=== PATIENT | male | born 1995 | race Caucasian/White ===

== ENCOUNTER 2016-09-05 11:16 | Emergency (ER) | payer OTHER ==
[~2016-09-05] VITALS: Ht 175.3 cm; Wt 65.3 kg
--- NOTE | 2016-09-05 11:39 | ED GENERAL ADULT ---
See Addendum History of Present Illness General Chief Complaint: Headache Stated Complaint: BIBA FOR MIGRAINE Source: patient, family Exam Limitations: no limitations Vital Signs & Intake/Output Vital Signs & Intake/Output Vital Signs Date Time Temp Pulse Resp B/P Pulse O2 O2 Flow FiO2 Ox Delivery Rate 09/05 2004 98.0 97 18 122/62 98 Room Air 09/05 1553 97.8 94 18 128/59 98 09/05 1307 Room Air Room Air 09/05 1123 97.8 102 16 127/85 95 Room Air ED Intake and Output 09/06 0000 09/05 1200 Intake Total 120 Output Total Balance 120 Intake, Oral 120 Patient 144 lb Weight Allergies Coded Allergies: No Known Allergies (09/05/16) Reconcile Medications Clonidine HCl 0.1 MG TABLET 1 TAB PO BID PRN WITHDRAWAL Ibuprofen 800 MG TABLET 1 TAB PO TID PRN PAIN Ondansetron (Zofran Odt) 4 MG TAB.RAPDIS 1 TAB PO Q6 PRN NAUSEA Triage Note: 30 Y/O MALE BIBA (TO TRIAGE) C/O SEVERE ANXIETY. STATES HE WOKE UP TODAY FEELING "SCARED, SO ANXIOUS" - TOOK 2MG XANAX AT THAT TIME AND DID NOT FEEL ANY BETTER SO ALSO USED HEROIN. STATES HE USES HEROIN A FEW TIMES A WEEK BUT STATES HE USED "A SMALL AMOUNT TODAY". PT STATES HE CAME TO ED TODAY DUE TO CONTINUED FEELING OF ANXIETY AND ALSO MIGRAINE HEADACHE. DENIES SI/HI PT ENTERED TRIAGE WITH FATHER; REQUESTED FATHER TO LEAVE AND STATES HE WOULD NOT LIKE HE FATHER TO KNOW ABOUT HIS CURRENT HEROIN USE. Triage Nurses Notes Reviewed? yes Onset: Abrupt Duration: hour(s): Timing: recent history HPI: 09/05/16 1:25 PM 30-year-old male was referred from [facility] for depression with suicidal ideation. The patient's been using heroin on a daily basis. He also complains of a headache and had some facial itching. The onset of the symptoms been abrupt, the duration is really unclear, the severity is significant as his symptoms required him to come to the emergency department for care No fever or other complaints (RL DELONG DO) Past History Travel History Traveled to [place] past 21 day No Medical History Any Pertinent Medical History? 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 No (RL DELONG DO) Review of Systems Review of Systems Constitutional: Denies: fever. EENTM: Reports: no symptoms. Respiratory: Reports: no symptoms. Cardiovascular: Reports: no symptoms. GI: Reports: no symptoms. Genitourinary: Reports: no symptoms. Musculoskeletal: Reports: no symptoms. Skin: Reports: no symptoms. Neurological/Psychological: Reports: depressed. Hematologic/Endocrine: Reports: no symptoms. (RL DELONG DO) Physical Exam Physical Exam General Appearance: alert, awake, anxious, mild distress Head: atraumatic, normal appearance Eyes: Bilateral: normal appearance, PERRL, EOMI. Ears, Nose, Throat: normal pharynx, normal ENT inspection Neck: normal inspection, supple, full range of motion Respiratory: normal breath sounds, chest non-tender, no respiratory distress Cardiovascular: regular rate/rhythm Peripheral Pulses: 4+ radial (R), 4+ radial (L) Gastrointestinal: non-tender Back: normal range of motion Extremities: normal inspection, normal range of motion Neurologic/Psych: no motor/sensory deficits, awake, alert, oriented x 3 Skin: intact, normal color, warm/dry Core Measures ACS in differential dx? No CVA/TIA Diagnosis: No Severe Sepsis Present: No Septic Shock Present: No (RL DELONG DO) Progress Differential Diagnoses I considered the following diagnoses in my evaluation of the patient: [ Depression, suicidal ideation, substance abuse] Plan of Care: Orders Procedure Date/time Status Continuous Observation Monitor 09/05 1328 Active ED CRISIS PSYCH CONSULT 09/05 1328 Active URINE DRUG SCREEN FOR ER ONLY 09/05 1234 Complete ACETOMINOPHEN 09/05 1234 Complete SALICYLATE 09/05 1234 Complete COMPREHENSIVE METABOLIC PANEL 09/05 1234 Complete CBC WITHOUT DIFFERENTIAL 09/05 1234 Complete Laboratory Tests 09/05/16 1325: RBC 5.08, MCV 88.4, MCH 29.9, RDW 12.2, MPV 7.5, Gran % 68.8, Lymphocytes % 23.2 , Monocytes % 6.4, Eosinophils % 1.2, Basophils % 0.4, Absolute Granulocytes 7.9 H, Absolute Lymphocytes 2.7, Absolute Monocytes 0.7 H, Absolute Eosinophils 0.1, Absolute Basophils 0, PUBS MCHC 33.8 09/05/16 1300: Urine Opiates Screen > 4000.00 H, Methadone Screen < 40, Barbiturate Screen < 60, Ur Phencyclidine Scrn < 6.00, Amphetamines Screen 256, U Benzodiazepines Scrn > 800 H, Urine Cocaine Screen 687 H, Urine Cannabis Screen 78.40 H 09/05/16 1300: Anion Gap 9, Estimated GFR > 60, BUN/Creatinine Ratio 12.9, Glucose 94, Calcium 9.3, Total Bilirubin 0.5, AST 31, ALT 30, Alkaline Phosphatase 57, Total Protein 6.8, Albumin 4.0, Globulin 2.8, Albumin/Globulin Ratio 1.4, Salicylates < 1.0, Acetaminophen < 10.0 L Patient cleared by Mitch from crisis for discharge home. Requesting outpatient methadone clinic. (BRIELLE TRIMBLE MD) Initial ED EKG: none (RL DELONG DO) Departure Departure Condition: Stable Referrals: PATIENT HAS NO PRIMARY CARE DR (PCP/Family) Departure Forms: Customer Survey General Discharge Information Prescriptions: Current Visit Scripts Ibuprofen 1 TAB PO TID PRN PAIN #20 TAB Ondansetron (Zofran Odt) 1 TAB PO Q6 PRN NAUSEA #20 TAB Clonidine HCl 1 TAB PO BID PRN WITHDRAWAL #15 TAB Comments The patient was seen and evaluated by crisis. He he would like to follow up in a methadone program. The patient was signed out to Dr. Trimble at 7 PM. (RL DELONG DO) Departure Disposition: HOME OR SELF CARE Clinical Impression Primary Impression: Benzodiazepine abuse Secondary Impressions: Opiate abuse, continuous Additional Instructions: Follow up with the outpatient list of detox referrals to you from our crisis department. Return as needed. (BRIELLE TRIMBLE MD) Critical Care Note Critical Care Note Critical Care Time: 30-74 min (RL DELONG DO)
[2016-09-05 14:01] LABS: ABSOLUTE BASOPHIL COUNT 0 /CUMM (0.0-0.2); ABSOLUTE EOSINOPHIL COUNT 0.1 /CUMM (0.0-0.7); ABSOLUTE GRANULOCYTE CT 7.9 /CUMM (1.4-6.5); ABSOLUTE LYMPH COUNT 2.7 /CUMM (1.2-3.4); ABSOLUTE MONOCYTE COUNT 0.7 /CUMM (0.10-0.60); BASOPHIL % 0.4 % (0.0-2.0); EOSINOPHIL % 1.2 % (0-5); GRANULOCYTE % 68.8 % (42.2-75.2); HEMATOCRIT 44.9 % (42-52); MEAN CORPUSCULAR HGB 29.9 PG (27.0-31.0); MEAN CORPUSCULAR HGB CONC 33.8 G/DL (33.0-37.0); MEAN CORPUSCULAR VOLUME 88.4 FL (80.0-94.0); MEAN PLATELET VOLUME 7.5 FL (7.4-10.4); PLATELET COUNT 215 /CUMM (130-400); RBC DISTRIBUTION WIDTH 12.2 % (11.5-14.5); RED BLOOD CELL CT 5.08 /CUMM (4.70-6.10); WHITE BLOOD CELL COUNT 11.5 /CUMM (4.8-10.8)
[2016-09-05 20:05] VITALS: BP 122/62
[2016-09-05] MEDS ORDERED: ZOFRAN ODT4 M1 PO (20:39)
[2016-09-05] MEDS ORDERED: CLONIDINE HCL0.1 MG PO (20:39)
[2016-09-05] MEDS ORDERED: IBUPROFEN800 M1 PO (20:39)
--- NOTE | 2016-09-05 20:44 | ED PSYCH CRISIS CONSULTATION ---
Crisis Consult Basic Assessment Date of Consult: 09/05/16 Responsible Person/Accompanied By: Brought in by father Insurance Authorization: Insurance #1: Insurance name: SELF-PAY Phone number: Policy number: Group number: Authorization number: ED Provider: Patient's ED Provider: RL DELONG DO Primary Care Physician: Patient's PCP: PATIENT HAS NO PRIMARY CARE DR PCP's Phone Number: Current Psychiatrist: Patient denies Chief Complaint: Headache Patient's Quote: "Last night I had a panic attack. I'm also a heroin user." Present Illness: Patient is a single 20 year old Samoan Lithuanian male who arrived to [facility]'s emergency department with his father due to concern of headache and increased anxiety (panic attacks in the past 24 hours). Pt. also reported to triage that he has been using heroin. Pt. presented calm, cooperative, and euthymic. Pt. denies suicidal thought , intent or plan. No indication of homicidal ideation, psychosis, or other high risk factors other than impulsivity / substance use. Patient admits to using heroin, marijuana, and illegal prescription opiates (xanax.) Patient has been intermittently using different substance since age 16 with longest reported sobriety at ~ 4 months last year. During that period of sobriety which patient achieved after quitting "cold turkley", he reports being barely functional with depressed mood / anhedonia. Patient lives with both biological parents in [place], [place]. Pt also reports attending community college in the [place], [place] Pt. has no history of inpatient treatment, or residential substance use treatment. Pt. has been evaluated before at the [facility] in [place] and at [facility] in [place]. However, it is unclear if pt. followed through and was consistent in treatment. Currently, patient is motivated to enter a methadone program. Pt. reports he is experiencing depressive symptoms, significant anxiety, and is nervous about having withdrawal symptoms / cravings for opiates / benzos. Pt.'s father is present and supportive of patient. Patient's Address: [address] [place] [address] Other Phone Number: Who Do You Live With? Family Family/Informants Interviewed: Father - Ramon Dlegado Father reports being concerned about patient. He is well aware of his substance use concerns and has tried to increase monitoring of patient. This is complicated as patient often is resistant and impulsive yet father tried to continue encouraging patient to accept treatment. Father indicates being aware of patient's substance use for the past 2 years. Father believes patient's friends are a negative influence and actively seek him out and push substances on him. Allergies - Coded Allergies: No Known Allergies (09/05/16) Current Medications - Scheduled PRN Medications Clonidine HCl 0.1 MG TABLET 1 TAB PO BID PRN WITHDRAWAL #15 TAB Prescribed by BRIELLE PINO MD on 09/05/16 Ibuprofen 800 MG TABLET 1 TAB PO TID PRN PAIN #20 TAB Prescribed by BRIELLE PINO MD on 09/05/16 Ondansetron (Zofran Odt) 4 MG TAB.RAPDIS 1 TAB PO Q6 PRN NAUSEA #20 TAB Prescribed by BRIELLE PINO MD on 09/05/16 Laboratory Results: Laboratory Tests 09/05/16 1325: RBC 5.08, MCV 88.4, MCH 29.9, RDW 12.2, MPV 7.5, Gran % 68.8, Lymphocytes % 23.2 , Monocytes % 6.4, Eosinophils % 1.2, Basophils % 0.4, Absolute Granulocytes 7.9 H, Absolute Lymphocytes 2.7, Absolute Monocytes 0.7 H, Absolute Eosinophils 0.1, Absolute Basophils 0, PUBS MCHC 33.8 09/05/16 1300: Urine Opiates Screen > 4000.00 H, Methadone Screen < 40, Barbiturate Screen < 60, Ur Phencyclidine Scrn < 6.00, Amphetamines Screen 256, U Benzodiazepines Scrn > 800 H, Urine Cocaine Screen 687 H, Urine Cannabis Screen 78.40 H 09/05/16 1300: Anion Gap 9, Estimated GFR > 60, BUN/Creatinine Ratio 12.9, Glucose 94, Calcium 9.3, Total Bilirubin 0.5, AST 31, ALT 30, Alkaline Phosphatase 57, Total Protein 6.8, Albumin 4.0, Globulin 2.8, Albumin/Globulin Ratio 1.4, Salicylates < 1.0, Acetaminophen < 10.0 L Past History Past Medical History Any Pertinent Medical History? 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 Patient is future oriented. Patient is motivated to engage in opiate agonist treatment and achieve sobriety. Physical Limitations (Interventions): None reported. Psychiatric Treatment History Psych Treatment Psychiatric Treatment Yes Inpatient Treatment No Outpatient Treatment Yes Location of Treatment Outpatient at [facility] in [place], [place] and [facility] in [place], [place] Reason for Treatment Substance abuse (heroin / opioids) Dates of Treatment 2013 & 2015 Response to Treatment Patient was not able to achieve sustained sobriety. Diagnosis by History: Opioid Use Disorder Anxiety Disorder Substance Use/Abuse History Drug Use/Abuse Substances Used/Abused Yes Substance Used/Abused Heroin First Use Age 16 Last Used Yesterday How much used/taken Highest use was 7 "bags" of heroin per day How often Pt reports "not daily" but frequent use. For how long Past 5 years Route of use Intranasal / Intravenous Substance Abuse Treatment Substance Abuse Treatment Past Substance Abuse TX Yes Inpatient Treatment No Outpatient Treatment Yes Location of Treatment [facility] / [facility] Reason for Treatment Substance abuse Dates of Treatment 2013 / 2015 Response to Treatment Varied Comments: - Current Mental Status Mental Status Orientation: Person, Place, Situation Affect: WNL Speech: WNL Neuro-vegetative: Anhedonia, Appetite Decreased, Loss of Interest Appearance Appearance- Dress/Hygiene: Pt. dressed in hospital attire. Only remarkable feature is glasses. Behaviors Thought Process: WNL Thought Content: WNL Memory: WNL Insight: Fair SI/HI Risk Assessment Past Suicidal Ideation/Attempts No Current Suicidal Ideation/Att No Past Homicidal Ideation/Att: No Current Homicidal Ideation/Attempts No Degree of Intent: None Danger To: Not indicated Gravely Disabled: No Risk Factors: age (under 24/over 65), high anxiety/distress, substance abuse, male Lethality Ratin (mild) PTSD Checklist PTSD Done? 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 There is no indication of homicidal ideation and no evidence of active psychosis. Patient's substance abuse is the primary concern which he would prefer to address with an outpatient methadone program. Patient counselled on risk of benzo withdrawal and the need to seek immediate medical attention if symptoms emerge. Patient also encouraged to obtain a NARCAN kit from a local pharmacy. Patient given information on local rehab/detox/substance use programs and a list of pharmacies where he can obtain NARCAN. Referrals PATIENT HAS NO PRIMARY CARE DR (PCP/Family)
== END 2016-09-05 20:44 ==
LOC: ERH 11:16 → EDBD 11:30 → ERH 11:30
PROVIDERS: Emergency Medicine
DX: F13.10 Sedative, hypnotic or anxiolytic abuse, uncomplicated (principal); F11.10 Opioid abuse, uncomplicated
CPT/HCPCS: 80307; G0463; G0480